=== PATIENT | male | born 1985 | race Hispanic/Latino ===

== ENCOUNTER 2017-06-04 11:19 | Inpatient (IN) | payer SELFPAY ==
[~2017-06-04] VITALS: Ht 175.3 cm; Wt 63.5 kg
[2017-06-04] VITALS (8 sets, daily range): BP systolic 125–163; BP diastolic 78–98
[~2017-06-04 11:19] MED LIST: NKM; NORCO 10-325 T1 EACH ORAL
--- NOTE | 2017-06-04 11:47 | Emergency Room Report ---
History of Present Illness General Chief Complaint: Lower Extremity Injury Source: Patient, EMS Present Illness HPI Patient was found outside a convenience store As the patient appeared to be lowering paramedics were summoned Patient had complained of general weakness Patient reports being homeless and reports that he has been having problems with his feet over the past 6 months Denies any fevers or chills He admits to doing drugs earlier today, however he is not sure exactly what he did Denies any vomiting or diarrhea denies any neck pain or photophobia Allergies: Coded Allergies: No Known Allergies (Unverified , 11/09/13) Patient History Past Medical History: see triage record Pertinent Family History: none Reviewed Nursing Documentation: PMH: Agreed, PSxH: Agreed Nursing Documentation-PMH Past Medical History: No History, Except For Hx Cardiac Problems: No - MULTIPLE DRUG USE Review of Systems All Other Systems: negative except mentioned in HPI Physical Exam Vital Signs Date Time Temp Pulse Resp B/P (MAP) Pulse Ox O2 Delivery O2 Flow Rate FiO2 06/04/17 11:02 100.0 130 19 135/98 99 Room Air Sp02 EP Interpretation: reviewed, normal General Appearance: no apparent distress Head: normocephalic, atraumatic Eyes: bilateral eye PERRL, bilateral eye EOMI ENT: normal pharynx, no angioedema Neck: supple Respiratory: lungs clear Cardiovascular #1: tachycardia Gastrointestinal: non tender, soft Musculoskeletal: other - Patient has lesions to bilateral feet, skin breakdown with some blister formation is noted in between the toes, left ankle appears mildly swollen patient states he had surgery several years ago, Neurologic: alert, oriented x3, responsive Skin: other - Disheveled in appearance, swelling in the left ankle, general skin breakdown in between the toes Lymphatic: no adenopathy Procedures Critical Care Time Critical Care Time 40 minutes for multiple re\re evaluations Critical presentation with tachycardia and fever, concerning for severe sepsis Including high wbc count And concern for worsening pathology and possible Medical Decision Making Diagnostic Impression: Primary Impression: Bacteremia Additional Impression: Severe sepsis ER Course Patient presents febrile and tachycardic There is concern for severe sepsis However the patient is not showing signs of any septic shock and maintaining appropriate blood pressure Patient has aggressive hydration and antibiotics initiated There are several sources of infection including drug abuse, leading to bacteremia Hardware infection in the left ankle Also source of from the feet with multiple blister formation Patient has imaging of the left ankle obtained as well requires admission to a high level of care [facility] [place] contacted without any bed availability And patient was admitted for further care Labs Test 06/04/17 11:41 06/04/17 12:15 White Blood Count 35.6 K/UL (4.8-10.8) Red Blood Count 4.61 M/UL (4.70-6.10) Hemoglobin 13.7 G/DL (14.2-18.0) Hematocrit 41.5 % (42.0-52.0) Mean Corpuscular Volume 90 FL (80-99) Mean Corpuscular Hemoglobin 29.7 PG (27.0-31.0) Mean Corpuscular Hemoglobin Concent 32.9 G/DL (32.0-36.0) Red Cell Distribution Width 11.5 % (11.6-14.8) Platelet Count 284 K/UL (150-450) Mean Platelet Volume 6.0 FL (6.5-10.1) Neutrophils (%) (Auto) % (45.0-75.0) Lymphocytes (%) (Auto) % (20.0-45.0) Monocytes (%) (Auto) % (1.0-10.0) Eosinophils (%) (Auto) % (0.0-3.0) Basophils (%) (Auto) % (0.0-2.0) Differential Total Cells Counted 100 Neutrophils % (Manual) 78 % (45-75) Lymphocytes % (Manual) 2 % (20-45) Monocytes % (Manual) 9 % (1-10) Eosinophils % (Manual) 0 % (0-3) Basophils % (Manual) 0 % (0-2) Band Neutrophils 11 % (0-8) Platelet Estimate Adequate Platelet Morphology Normal Red Blood Cell Morphology Normal Sodium Level 133 mEQ/L (135-145) Potassium Level 3.7 mEQ/L (3.4-4.9) Chloride Level 92 mEQ/L (98-107) Carbon Dioxide Level 24 mEQ/L (20-30) Anion Gap 17 (5-15) Blood Urea Nitrogen 23 mg/dL (7-23) Creatinine 0.8 mg/dL (0.7-1.2) Estimat Glomerular Filtration Rate > 60 mL/min (>60) Glucose Level 155 mg/dL (74-106) Calcium Level 8.8 mg/dL (8.6-10.2) Urine Color Pale yellow Urine Appearance Clear Urine pH 5 (4.5-8.0) Urine Specific [place] 1.015 (1.005-1.035) Urine Protein 2+ (NEGATIVE) Urine Glucose (UA) 4+ (NEGATIVE) Urine Ketones 3+ (NEGATIVE) Urine Occult Blood 2+ (NEGATIVE) Urine Nitrite Negative (NEGATIVE) Urine Bilirubin Negative (NEGATIVE) Urine Urobilinogen Normal MG/DL (0.0-1.0) Urine Leukocyte Esterase Negative (NEGATIVE) Urine RBC 5-10 /HPF (0 - 0) Urine WBC 2-4 /HPF (0 - 0) Urine Squamous Epithelial Cells Few /LPF (NONE/OCC) Urine Bacteria Few /HPF (NONE) Lactic Acid Level 3.40 mmol/L (0.66-2.22) Urine Opiates Screen Negative (NEGATIVE) Urine Barbiturates Screen Negative (NEGATIVE) Phencyclidine (PCP) Screen Negative (NEGATIVE) Urine Amphetamines Screen Positive (NEGATIVE) Urine Benzodiazepines Screen Negative (NEGATIVE) Urine Cocaine Screen Negative (NEGATIVE) Urine Marijuana (THC) Screen Positive (NEGATIVE) Rhythm Strip Diag. Results EP Interpretation: yes Rate: 120 Rhythm: no PVC's, no ectopy, other - sinus tach Other X-Ray Diagnostic Results Other X-Ray Diagnostic Results : X-Ray ordered: left ankle # of Views/Limited Vs Complete: 3 View Indication: Pain EP Interpretation: Yes Interpretation: no dislocation, no fractures, other - soft tissue swelling, nonspecific, questionable small gas distal fibula area Impression: Other - soft tissue swelling Electronically Signed by: Ellie Powers DO Last Vital Signs Date Time Temp Pulse Resp B/P (MAP) Pulse Ox O2 Delivery O2 Flow Rate FiO2 06/04/17 11:02 100.0 130 19 135/98 99 Room Air Status: improved Disposition: ADMITTED INPATIENT Condition: Critical ELLIE POWERS D.O. Jun 04, 2017 11:47
[2017-06-04 11:56] LABS: MEAN CORPUSCULAR HEMOGLOBIN 29.7 PG (27.0-31.0); MEAN CORPUSCULAR HGB CONC 32.9 G/DL (32.0-36.0); MEAN CORPUSCULAR VOLUME 90 FL (80-99); PLATELET COUNT 284 K/UL (150-450); RED BLOOD COUNT 4.61 M/UL (4.70-6.10); RED CELL DISTRIBUTION WIDTH 11.5 % (11.6-14.8)
[2017-06-04 11:59] LABS: WHITE BLOOD COUNT 35.6 K/UL (4.8-10.8)
[2017-06-04] MEDS ORDERED: Acetaminophen 500mg (ES) tab ORAL ONE (11:59)
[2017-06-04 12:07] LABS: ANION GAP 17 (5-15); CALCIUM 8.8 mg/dL (8.6-10.2); CARBON DIOXIDE 24 mEQ/L (20-30); CHLORIDE 92 mEQ/L (98-107); CREATININE 0.8 mg/dL (0.7-1.2); GLOMERULAR FILTRATION RATE > 60 mL/min (>60); HEMOLYSIS 16; POTASSIUM 3.7 mEQ/L (3.4-4.9); SODIUM 133 mEQ/L (135-145)
[2017-06-04] MEDS ORDERED: cefTRIAXone 1 GM in NS 55 ML IVPB ONE (12:15)
[2017-06-04] MEDS ORDERED: Acetaminophen 500mg (ES) tab ORAL SCH (12:15)
[2017-06-04] MEDS ORDERED: NS 1000ml 1,900 ML IVLG ONE (12:15)
[2017-06-04] MEDS ORDERED: Vancomycin 1 GM in NS 275 ML IVPB ONE (12:15)
[2017-06-04] MEDS ORDERED: Vancomycin 1gm inj IVPB ONE (12:32)
[2017-06-04] MEDS ORDERED: Hydrogen Peroxide 473ml Bottle TOPIC ONE ×2 (12:47→13:00)
[2017-06-04 12:54] LABS: APPEARANCE,URINE CLEAR; KETONES,URINE 3+ (NEGATIVE); LEUKOCYTE ESTERASE ,URINE NEGATIVE (NEGATIVE); NITRITE,URINE NEGATIVE (NEGATIVE); PH,URINE 5 (4.5-8.0); PROTEIN,URINE 2+ (NEGATIVE); UROBILINOGEN,URINE NORMAL MG/DL (0.0-1.0)
[2017-06-04 12:56] LABS: REFLEX LACTIC ACID YES OR NO YES
[2017-06-04 12:58] LABS: BAND NEUTROPHILS % (MANUAL) 11 % (0-8); BASOPHILS % (MANUAL) 0 % (0-2); EOSINOPHILS % (MANUAL) 0 % (0-3); LYMPHOCYTES % (MANUAL) 2 % (20-45); NEUTROPHILS % (MANUAL) 78 % (45-75); PLATELET ESTIMATE ADEQUATE; PLATELET MORPHOLOGY NORMAL; TOTAL CELLS COUNTED 100
[2017-06-04 13:09] LABS: BACTERIA,URINE FEW /HPF; SQUAMOUS EPITHELIAL CELL,UR FEW /LPF (NONE/OCC)
[2017-06-04] MEDS ORDERED: Acetaminophen 500mg (ES) tab ORAL PRN (16:00)
[2017-06-04] MEDS: Piperacillin/Tazobactam 3.375 GM in D5W 110 ML IVPB SCH (17:55)
[2017-06-04] MEDS: Heparin 5000 units/ml inj SUBQ SCH (20:32)
[2017-06-04] MEDS: Vancomycin 750mg/NS 250ml IVPB SCH (20:32)
[2017-06-05] MEDS: Norco 10mg/325mg tab ORAL PRN ×5 (00:24→23:56)
[2017-06-05] MEDS: Piperacillin/Tazobactam 3.375 GM in D5W 110 ML IVPB SCH ×3 (01:40→17:53)
[2017-06-05 03:46] VITALS: BP 124/65
[2017-06-05] MEDS: Vancomycin 750mg/NS 250ml IVPB SCH ×3 (04:36→22:25)
[2017-06-05 08:09] VITALS: BP 125/80
[2017-06-05 08:11] LABS: MEAN CORPUSCULAR HEMOGLOBIN 31.6 PG (27.0-31.0); MEAN CORPUSCULAR HGB CONC 34.7 G/DL (32.0-36.0); MEAN CORPUSCULAR VOLUME 91 FL (80-99); MEAN PLATELET VOLUME 5.7 FL (6.5-10.1); PLATELET COUNT 231 K/UL (150-450); RED BLOOD COUNT 3.36 M/UL (4.70-6.10)
[2017-06-05 08:29] LABS: CKMB 3.7 ng/mL (< 6.7)
[2017-06-05] MEDS ORDERED: Morphine Sulfate 2mg/ml Inj IVP ONE (08:30)
[2017-06-05] MEDS ORDERED: LORazepam Inj 2mg/ml 1ml IV ONE (08:30)
--- NOTE | 2017-06-05 08:49 | Consultation ---
Consult Note Consult Note DATE OF CONSULT: 06/05/17 COVERING FOR: ERICK ELIZABETH DPM REASON FOR CONSULT: BILATERAL FOOT ULCERS HISTORY OF PRESENT ILLNESS: Patient is withdrawn and unwilling to answer questions initially. He is homeless with a history of drug abuse who presents with bilateral foot wounds. Patient states that he has pain on the right foot and mentions that he is having difficulty moving the right lower extremity. breeder hen service technician is present to take patient for MRI of the lower back. PAST MEDICAL HISTORY: Patient states he does not have any medical problems Last 24 Hour Vital Signs Date Time Temp Pulse Resp B/P (MAP) Pulse Ox O2 Delivery O2 Flow Rate FiO2 06/05/17 08:09 96.8 127 20 125/80 96 Room Air 06/05/17 05:50 98.4 06/05/17 04:00 105 06/05/17 03:46 98.4 126 23 124/65 98 Room Air 06/05/17 00:18 100.0 06/05/17 00:00 104 06/04/17 23:50 101.5 109 21 125/80 96 06/04/17 20:00 118 06/04/17 19:52 100.0 122 23 163/84 96 Room Air 06/04/17 16:35 126 06/04/17 16:25 98.6 121 20 148/82 98 Room Air 06/04/17 16:15 117 06/04/17 15:38 116 18 136/89 99 Room Air 06/04/17 15:27 100.5 118 16 145/81 100 Room Air 06/04/17 14:05 125 20 143/79 98 Room Air 06/04/17 13:47 129 24 140/78 100 Room Air 06/04/17 13:20 97.8 06/04/17 12:54 123 24 143/93 100 Room Air 06/04/17 11:25 100.3 123 20 139/98 99 Room Air 06/04/17 11:20 128 20 Room Air 06/04/17 11:02 100.0 130 19 135/98 99 Room Air Laboratory Tests Test 06/04/17 11:41 06/04/17 12:15 06/04/17 14:29 06/05/17 07:35 White Blood Count 35.6 K/UL (4.8-10.8) *H 30.0 K/UL (4.8-10.8) *H Red Blood Count 4.61 M/UL (4.70-6.10) L 3.36 M/UL (4.70-6.10) L Hemoglobin 13.7 G/DL (14.2-18.0) L 10.6 G/DL (14.2-18.0) L Hematocrit 41.5 % (42.0-52.0) L 30.6 % (42.0-52.0) L Mean Corpuscular Volume 90 FL (80-99) 91 FL (80-99) Mean Corpuscular Hemoglobin 29.7 PG (27.0-31.0) 31.6 PG (27.0-31.0) H Mean Corpuscular Hemoglobin Concent 32.9 G/DL (32.0-36.0) 34.7 G/DL (32.0-36.0) Red Cell Distribution Width 11.5 % (11.6-14.8) L 12.0 % (11.6-14.8) Platelet Count 284 K/UL (150-450) 231 K/UL (150-450) Mean Platelet Volume 6.0 FL (6.5-10.1) L 5.7 FL (6.5-10.1) L Neutrophils (%) (Auto) % (45.0-75.0) % (45.0-75.0) Lymphocytes (%) (Auto) % (20.0-45.0) % (20.0-45.0) Monocytes (%) (Auto) % (1.0-10.0) % (1.0-10.0) Eosinophils (%) (Auto) % (0.0-3.0) % (0.0-3.0) Basophils (%) (Auto) % (0.0-2.0) % (0.0-2.0) Differential Total Cells Counted 100 Neutrophils % (Manual) 78 % (45-75) H Pending Lymphocytes % (Manual) 2 % (20-45) L Pending Monocytes % (Manual) 9 % (1-10) Eosinophils % (Manual) 0 % (0-3) Basophils % (Manual) 0 % (0-2) Band Neutrophils 11 % (0-8) H Platelet Estimate Adequate Pending Platelet Morphology Normal Pending Red Blood Cell Morphology Normal Sodium Level 133 mEQ/L (135-145) L Potassium Level 3.7 mEQ/L (3.4-4.9) Chloride Level 92 mEQ/L (98-107) L Carbon Dioxide Level 24 mEQ/L (20-30) Anion Gap 17 (5-15) H Blood Urea Nitrogen 23 mg/dL (7-23) Creatinine 0.8 mg/dL (0.7-1.2) Estimat Glomerular Filtration Rate > 60 mL/min (>60) Glucose Level 155 mg/dL (74-106) H Calcium Level 8.8 mg/dL (8.6-10.2) Urine Color Pale yellow Urine Appearance Clear Urine pH 5 (4.5-8.0) Urine Specific [place] 1.015 (1.005-1.035) Urine Protein 2+ (NEGATIVE) H Urine Glucose (UA) 4+ (NEGATIVE) H Urine Ketones 3+ (NEGATIVE) H Urine Occult Blood 2+ (NEGATIVE) H Urine Nitrite Negative (NEGATIVE) Urine Bilirubin Negative (NEGATIVE) Urine Urobilinogen Normal MG/DL (0.0-1.0) Urine Leukocyte Esterase Negative (NEGATIVE) Urine RBC 5-10 /HPF (0 - 0) H Urine WBC 2-4 /HPF (0 - 0) Urine Squamous Epithelial Cells Few /LPF (NONE/OCC) Urine Bacteria Few /HPF (NONE) Lactic Acid Level 3.40 mmol/L (0.66-2.22) H 4.40 mmol/L (0.66-2.22) H 0.90 mmol/L (0.66-2.22) Urine Opiates Screen Negative (NEGATIVE) Urine Barbiturates Screen Negative (NEGATIVE) Phencyclidine (PCP) Screen Negative (NEGATIVE) Urine Amphetamines Screen Positive (NEGATIVE) H Urine Benzodiazepines Screen Negative (NEGATIVE) Urine Cocaine Screen Negative (NEGATIVE) Urine Marijuana (THC) Screen Positive (NEGATIVE) H Hemoglobin A1c Pending Total Creatine Kinase 685 U/L (38-174) H Creatine Kinase MB 3.7 ng/mL (< 6.7) Creatine Kinase MB Relative Index 0.5 SOCIAL HISTORY: History of recent drug abuse. Patient is not sure what he took. Patient is homeless per chart review Medications: Reviewed Allergies: Non known PHYSICAL EXAM: DERM: Patient has an ingrown nail at the right hallux medial border with purulence noted. Patient also has a small pustule at the dorsal right 3rd toe. Interdigital blisters in various stages of healing NEURO: Sensation in tact to light touch VASC: Pedal pulses palpable MSK: Decreased muscle strength noted on right lower extremity . Assessment/Plan ASSESSMENT: - Right hallux ingrown with surrounding cellulitis - Right 3rd toe pustule - Interdigital blisters - Right lower extremity acute weakness PLAN: - Performed a slant back procedure on the right hallux medial border. If inflammation does not improve patient will require a partial nail avulsion. Continue daily dressing changes with application of topical antibiotic ointment covered with non adherent dry dressing. Obtained cultures - Lanced the right foot 3rd toe pustule - Follow up MRI results Donald Pink DPM Jun 05, 2017 08:49
[2017-06-05 08:56] LABS: BAND NEUTROPHILS % (MANUAL) 6 % (0-8); BASOPHILS % (MANUAL) 0 % (0-2); EOSINOPHILS % (MANUAL) 0 % (0-3); LYMPHOCYTES % (MANUAL) 4 % (20-45); NEUTROPHILS % (MANUAL) 83 % (45-75); PLATELET ESTIMATE ADEQUATE; PLATELET MORPHOLOGY NORMAL; TOTAL CELLS COUNTED 100
[2017-06-05] MEDS ORDERED: Tubing IV Secondary IV ONE (10:02)
--- NOTE | 2017-06-05 10:07 | Diagnostic Imaging Report ---
Indication: PAIN Technique: 3 views of the left ankle Comparison: None Findings: Medial side plate and screws are seen reducing old healed distal tibial fracture deformity. There is also old healed distal fibular fracture deformity. No acute fractures. No dislocations. The joint spaces are preserved Impression: No acute bony trauma. Findings as noted
[2017-06-05] MEDS: Heparin 5000 units/ml inj SUBQ SCH ×2 (10:18→20:06)
[2017-06-05 11:25] VITALS: BP 134/71
--- NOTE | 2017-06-05 11:30 | Diagnostic Imaging Report ---
Indication: ABSCESS Technique: Sagittal T1, sagittal T2 PROPELLER, sagittal STIR PROPELLER, axial T1 FLAIR propeller, axial T2 FRFSE, axial T2 PROPELLER disc cut, pre-and postcontrast sagittal axial T1 fast spin-echo fat-saturated images Comparison: None Findings: The bony alignment is normal. Vertebral body heights are preserved. The disc spaces are preserved. The vertebral body marrow signal is normal. The conus medullaris terminates at the L1 level. No significant disc old or protrusion, spinal stenosis, or neural foraminal stenosis demonstrated. No unusual contrast enhancement. There is marked abnormality of the right iliopsoas muscle. The iliacus muscle in particular is diffusely edematous and demonstrates considerable contrast enhancement at least 2 areas of high T2 signal and non-enhancement are seen within the belly of the iliacus muscle, each measuring about 15 mm in diameter. There is somewhat less striking distal definite increased T2 signal and enhancement extending cephalad up the posterior psoas muscle. Note that the iliacus muscle is incompletely included on the available imaging volumes, so the extent of abnormality is not completely seen, at least caudad within the pelvis The remainder of the visualized extraspinal soft tissues are unremarkable. Impression: Evidence of inflammation of the right iliopsoas musculature, particularly the iliacus component, with marked edema and considerable contrast enhancement. At least 2 small abscesses are seen within the iliacus muscle belly. Although the above abnormality is contiguous with the right lateral aspect of the lumbar vertebral bodies and transverse processes, as well as the exiting nerve roots, there is no evidence of direct lumbar spinal involvement by the above. No evidence of epidural abscess or significant neural impingement.
[2017-06-05 15:41] VITALS: BP 118/69
--- NOTE | 2017-06-05 18:21 | Cardiology Report ---
APPROVED REPORT EXAM: Two-dimensional and M-mode echocardiogram with Doppler and color Doppler. INDICATION Endocarditis M-Mode DIMENSIONS IVSd0.8 (0.7-1.1cm)Left Atrium (MM)3.5 (1.6-4.0cm) LVDd4.5 (3.5-5.6cm)Aortic Root2.4 (2.0-3.7cm) PWd0.7 (0.7-1.1cm)Aortic Cusp Exc.2.0 (1.5-2.0cm) LVDs3.0 (2.5-4.0cm) PWs1.1 cm Technically difficult study due to poor acoustic windows. Normal left ventricular chamber size, systolic function and wall motion. Left ventricular ejection fraction estimated to be 60-65%. No evidence of left ventricular hypertrophy. No evidence of pericardial fat or effusion. All other cardiac chamber sizes are within normal limits. Focal aortic valve sclerosis with adequate cusp excursion Thickened mitral valve leaflets with normal excursion. Mitral annulus and aortic root calcification. Pulmonic valve not well visualized. Normal tricuspid valve structure. IVC is normal in size with physiologic collapse. No evidence of vegitation, consider EDWARD if clinically indicated. A color flow and spectral Doppler study was performed and revealed: No aortic regurgitation. Trace mitral regurgitation. Left ventricular diastolic dysfunction grade 1. Trace tricuspid regurgitation.
--- NOTE | 2017-06-05 18:36 | Cardiology Report ---
APPROVED REPORT EKG Measurement Heart [id number] Sinus tachycardia Otherwise normal ECG
[2017-06-05 20:00] VITALS: BP 129/80
--- NOTE | 2017-06-05 20:15 | History and Physical Report ---
DATE OF ADMISSION: 06/04/2017 CHIEF COMPLAINT: Sepsis. HISTORY OF PRESENT ILLNESS: The patient is a 32-year-old male. He has a history of substance abuse and presented with complaints of a fall. According to the patient, he was well, felt weak, and fell down on the street. He was brought in by paramedics. On evaluation in the emergency room, the patient was noted to have fever of 101.5. He was tachycardiac with a white count of 35,000 and elevated lactic acid level. The patient denies any cough. He denies any fevers or chills. He is noted to have erythema on the right arm possibly secondary to cellulitis as well as multiple foot wounds and erythema. He has been started on broad-spectrum IV antibiotic therapy. He is now admitted for further evaluation and care. PAST MEDICAL HISTORY: None. PAST SURGICAL HISTORY: None. CURRENT MEDICATIONS: None. FAMILY HISTORY: None. SOCIAL HISTORY: The patient smokes amphetamines and injects amphetamines as well as marijuana. REVIEW OF SYSTEMS: Negative except for generalized pain. The patient also states he is having difficulty moving his right leg. PHYSICAL EXAMINATION: VITAL SIGNS: Temperature 96.8, pulse 127, respirations 20, and blood pressure 125/80. GENERAL: The patient is a thin male, but in no apparent distress. He is alert and oriented x4. NECK: Supple. There is no adenopathy. HEART: Regular rate and rhythm. LUNGS: Clear. ABDOMEN: Soft, nontender, and nondistended. EXTREMITIES: Without clubbing or cyanosis. The patient has weakness with flexion of the right hip. ASSESSMENT: This is a 32-year-old male admitted with complaints of leukocytosis, sepsis, and fevers of unclear etiology. There is concern about a possible foot infection as well as cellulitis. He has some weakness in the right leg as well as generalized pain. I would also be concerned about endocarditis and a spine infection. PLAN: Continue broad-spectrum IV antibiotics. ID and Podiatry consultations. Aggressive hydration. Followup cultures, 2D echo, and MRI of the lumbar spine to rule out an epidural abscess. Ulises Hunter M.D. DR: FESTUS JOB#: [id number] CC:
[2017-06-06 00:19] VITALS: BP 127/75
[2017-06-06] MEDS: Piperacillin/Tazobactam 3.375 GM in D5W 110 ML IVPB SCH ×3 (01:00→18:07)
[2017-06-06] MEDS: Vancomycin 1250mg/D5W 250ml IVPB SCH ×4 (03:39→22:29)
[2017-06-06 04:31] VITALS: BP 120/61
[2017-06-06] MEDS: Norco 10mg/325mg tab ORAL PRN (06:16)
--- NOTE | 2017-06-06 08:39 | General Progress Note ---
Assessment/Plan Problem List: (1) Severe sepsis ICD Codes: A41.9 - Sepsis, unspecified organism; R65.20 - Severe sepsis without septic shock SNOMED: [id number] Status: stable, progressing Assessment/Plan iv abx follow cultures surgery eval for abscess anxiety rx Subjective ROS Limited/Unobtainable: No Constitutional: Reports: malaise, weakness HEENT: Reports: no symptoms Cardiovascular: Reports: no symptoms Respiratory: Reports: no symptoms Gastrointestinal/Abdominal: Reports: no symptoms Genitourinary: Reports: no symptoms Neurologic/Psychiatric: Reports: anxiety Endocrine: Reports: no symptoms Hematologic/Lymphatic: Reports: no symptoms Allergies: Coded Allergies: No Known Allergies (Unverified , 11/09/13) All Systems: reviewed and negative except above Subjective no events. fever trending down MRI negative for epidural abscess. no endocarditis on echo. CT shows right illpsoas/thigh abscess. Objective Last 24 Hour Vital Signs Date Time Temp Pulse Resp B/P (MAP) Pulse Ox O2 Delivery O2 Flow Rate FiO2 06/06/17 04:31 99.7 111 20 120/61 94 Room Air 06/06/17 04:00 105 06/06/17 00:55 98.6 06/06/17 00:19 98.6 118 20 127/75 94 06/06/17 00:00 110 06/05/17 20:00 101.7 125 19 129/80 97 Room Air 06/05/17 20:00 123 06/05/17 16:00 122 06/05/17 15:41 99.3 124 20 118/69 98 Room Air 06/05/17 12:00 127 06/05/17 11:25 98.4 129 20 134/71 95 Room Air 06/05/17 09:42 110 Laboratory Tests 06/05/17 21:15: Vancomycin Level Trough 4.7L Height (Feet): 5 Height (Inches): 9.00 Weight (Pounds): 140 General Appearance: WD/WN, agitated Neck: supple Cardiovascular: regular rhythm Respiratory/Chest: lungs clear, normal breath sounds Abdomen: normal bowel sounds, non tender, soft, no organomegaly Edema: no edema noted Arm (L), no edema noted Arm (R), no edema noted Leg (L), no edema noted Leg (R), no edema noted Pedal (L), no edema noted Pedal (R), no edema noted Generalized Neurologic: sorting and folding supervisor II-XII grossly normal, alert, oriented x 3, responsive TERESA REEVES Jun 06, 2017 08:39
[2017-06-06 09:33] VITALS: BP 131/87
--- NOTE | 2017-06-06 09:33 | Diagnostic Imaging Report ---
APPROVED REPORT CPT Code: 25105 Comments Pain Bilaterally. BILATERAL: Common femoral artery waveform analysis is within normal limits at rest. Color flow duplex sonography reveals patency of the superficial femoral, popliteal, and tibial arteries, there is no evidence of stenosis or occlusion within these segments. Doppler tibial artery waveform analysis is within normal limits, bilaterally. There is no evidence of significant arterial occlusive disease, bilaterally.
[2017-06-06] MEDS: Heparin 5000 units/ml inj SUBQ SCH ×2 (09:41→21:06)
[2017-06-06 09:55] LABS: OTHERS PATHOLOGIST COMMENT
[2017-06-06 10:24] LABS: MEAN CORPUSCULAR HEMOGLOBIN 32.3 PG (27.0-31.0); MEAN CORPUSCULAR HGB CONC 35.1 G/DL (32.0-36.0); MEAN CORPUSCULAR VOLUME 92 FL (80-99); MEAN PLATELET VOLUME 5.9 FL (6.5-10.1); PLATELET COUNT 240 K/UL (150-450); RED BLOOD COUNT 3.33 M/UL (4.70-6.10)
[2017-06-06 10:27] LABS: WHITE BLOOD COUNT 29.7 K/UL (4.8-10.8)
[2017-06-06 10:42] LABS: BAND NEUTROPHILS % (MANUAL) 5 % (0-8); BASOPHILS % (MANUAL) 0 % (0-2); EOSINOPHILS % (MANUAL) 0 % (0-3); LYMPHOCYTES % (MANUAL) 5 % (20-45); NEUTROPHILS % (MANUAL) 84 % (45-75); PLATELET ESTIMATE ADEQUATE; PLATELET MORPHOLOGY NORMAL; TOTAL CELLS COUNTED 100
[2017-06-06 10:44] LABS: ALANINE AMINOTRANSFERASE 39 U/L (3-41); ALBUMIN/GLOBULIN RATIO 0.8 (1.0-2.7); ANION GAP 7 (5-15); ASPARTATE AMINO TRANSFERASE 33 U/L (5-40); CARBON DIOXIDE 31 mEQ/L (20-30); CHLORIDE 102 mEQ/L (98-107); CREATININE 0.7 mg/dL (0.7-1.2); GLOMERULAR FILTRATION RATE > 60 mL/min (>60); HEMOLYSIS 0; POTASSIUM 3.3 mEQ/L (3.4-4.9); SODIUM 140 mEQ/L (135-145); TOTAL PROTEIN 5.6 g/dL (6.6-8.7)
--- NOTE | 2017-06-06 10:53 | Consultation ---
History of Present Illness General Date patient seen: Jun 06, 2017 Chief Complaint: Lower Extremity Injury Reason for Consultation: right iliacus abscess Present Illness HPI 32 year old male with history of IVDA presented with complaints of fatigue resulting in fall. Patient complaining of right groin pain and difficulty walking because of pain and swelling in right groin. States that his has been going on for 2 days and does not recall any events prior to acute onset. Pain described as 10/10 right groin pain that is sharp in nature. has not had similar events prior. MRI ordered for pain demonstrated right iliacus/psoas abscess with inflammation. Upon admission patient was febrile with leukocytosis of 35k and elevated lactate. Surgery called to evaluate. When seen at bedside patient complains of right groin pain and difficulty with moving right leg. From beginning of interview to the end patient is focused on pain medication and continuously requests pain medication. He interrupts interview multiple times to discuss what pain medication he is on and how it can be changed to stronger pain medication. He states that he has been an IVDA for many years now. 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 States he has injected in his right arm prior but denies injection into lower extremities, trunk, neck, or groins. During examination patient does not demonstrate pain when distracted but when focused on pain medication he projects severe pain. PMHx: IVDA, denies any other past medical history PSHx: none as per patient FHx: none as per patient NKDA Social Hx: denies tobacco, denies EtOH, initially denies drugs but then admits to IVDA of Meth Allergies: Coded Allergies: No Known Allergies (Unverified , 11/09/13) Medication History Scheduled No Known Medications* (NKM - No Known Medications*), 0 ., (Reported) No Known Medications* (NKM - No Known Medications*), 0 ., (Reported) Scheduled PRN Hydrocodone Bit/Acetaminophen 10-325* ([place] 10-325*), 1 TAB ORAL Q6H PRN for For Pain Patient History History Provided By: Patient Healthcare decision maker Resuscitation status Full Code Advanced Directive on File Past Medical/Surgical History Past Medical/Surgical History: (1) Psoas abscess, right (2) tibia fracture (3) fibula fracture (4) Acute alcoholic intoxication (5) Drug abuse (6) Drug abuse (7) Bacteremia (8) Severe sepsis Review of Systems Constitutional: Reports: fever Eye: Denies: no symptoms, see HPI, eye pain, blurred vision, tearing, double vision, nose pain, nose congestion, acuity changes, discharge, other ENT: Denies: no symptoms, see HPI, ear pain, ear discharge, nose pain, nose congestion, throat pain, throat swelling, mouth pain, hearing loss, nasal discharge, other Respiratory: Denies: no symptoms, see HPI, cough, orthopnea, shortness of breath, stridor, wheezing, SALGUERO, sputum, other Cardiovascular: Denies: no symptoms, see HPI, chest pain, edema, palpitations, syncope, PND, other Gastrointestinal: Denies: no symptoms, see HPI, abdominal pain, constipation, diarrhea, nausea, vomiting, melena, hematemesis, other Genitourinary: Denies: no symptoms, see HPI, discharge, dysuria, frequency, hematuria, pain, retention, incontinence, urgency, vag bleed/dc, other Musculoskeletal: Reports: back pain, joint pain, muscle pain, muscle stiffness Skin: Denies: no symptoms, see HPI, rash, change in color, change in hair/nails , dryness, lesions, other Psychiatric: Reports: prior hx, Denies: no symptoms, see HPI, anxiety, depressed feelings, emotional problems, SI, HI, hallucinations, other Neurological: Denies: no symptoms, see HPI, headache, numbness, paresthesia, seizure, tingling, tremors, focal weakness, syncope, dizziness, other Endocrine: Denies: no symptoms, see HPI, excessive sweating, flushing, intolerance to temperature, increased thirst, increased urine, unexplained weight loss, other Hematologic/Lymphatic: Denies: no symptoms, see HPI, anemia, blood clots, easy bleeding, easy bruising, swollen glands, diathesis, other Physical Exam General Appearance: no apparent distress, alert Lines, tubes and drains: peripheral HEENT: normocephalic, atraumatic, mucous membranes moist, PERRL Neck: non-tender, normal alignment, normal inspection Respiratory/Chest: normal breath sounds, no respiratory distress, no accessory muscle use Cardiovascular/Chest: normal peripheral pulses, normal rate, regular rhythm Abdomen: normal bowel sounds, non tender, soft, no organomegaly, no mass Genitourinary/Rectal: normal genital exam Extremities: other - right groin and upper thigh with some edema and tenderness. no superficial abscess or inflammatory process noted. decreased range of motion from inflammation in right leg. no pain with active or passive motion Skin Exam: normal pigmentation Neurologic: alert, oriented x 3, responsive Last 24 Hour Vital Signs Date Time Temp Pulse Resp B/P (MAP) Pulse Ox O2 Delivery O2 Flow Rate FiO2 06/06/17 09:33 98.2 95 16 131/87 99 Room Air 06/06/17 04:31 99.7 111 20 120/61 94 Room Air 06/06/17 04:00 105 06/06/17 00:55 98.6 06/06/17 00:19 98.6 118 20 127/75 94 06/06/17 00:00 110 06/05/17 20:00 101.7 125 19 129/80 97 Room Air 06/05/17 20:00 123 06/05/17 16:00 122 06/05/17 15:41 99.3 124 20 118/69 98 Room Air 06/05/17 12:00 127 06/05/17 11:25 98.4 129 20 134/71 95 Room Air Laboratory Tests Test 06/05/17 21:15 06/06/17 09:55 Vancomycin Level Trough 4.7 ug/mL (5.0-12.0) L White Blood Count 29.7 K/UL (4.8-10.8) *H Red Blood Count 3.33 M/UL (4.70-6.10) L Hemoglobin 10.7 G/DL (14.2-18.0) L Hematocrit 30.6 % (42.0-52.0) L Mean Corpuscular Volume 92 FL (80-99) Mean Corpuscular Hemoglobin 32.3 PG (27.0-31.0) H Mean Corpuscular Hemoglobin Concent 35.1 G/DL (32.0-36.0) Red Cell Distribution Width 12.0 % (11.6-14.8) Platelet Count 240 K/UL (150-450) Mean Platelet Volume 5.9 FL (6.5-10.1) L Neutrophils (%) (Auto) % (45.0-75.0) Lymphocytes (%) (Auto) % (20.0-45.0) Monocytes (%) (Auto) % (1.0-10.0) Eosinophils (%) (Auto) % (0.0-3.0) Basophils (%) (Auto) % (0.0-2.0) Neutrophils % (Manual) Pending Lymphocytes % (Manual) Pending Platelet Estimate Pending Platelet Morphology Pending Sodium Level Pending Potassium Level Pending Chloride Level Pending Carbon Dioxide Level Pending Blood Urea Nitrogen Pending Creatinine Pending Estimat Glomerular Filtration Rate Pending Glucose Level Pending Calcium Level Pending Total Bilirubin Pending Aspartate Amino Transf (AST/SGOT) Pending Alanine Aminotransferase (ALT/SGPT) Pending Alkaline Phosphatase Pending Total Protein Pending Albumin Pending Globulin Pending Hepatitis A IgM Antibody Pending Hepatitis A Antibody Total Pending Hepatitis B Surface Antigen Pending Hepatitis B Surface Antibody Pending Hepatitis C Antibody Pending HIV (1&2) Antibody Rapid Pending Height (Feet): 5 Height (Inches): 9.00 Weight (Pounds): 140 Medications Current Medications Medications (Trade) Dose Ordered Sig/Raymon Route PRN Reason Start Time Stop Time Status Last Admin Dose Admin Acetaminophen (Tylenol) 500 mg Q4H PRN ORAL Mild Pain/Temp > 100.5 06/04/17 16:00 07/04/17 15:59 06/04/17 23:07 Acetaminophen/ Hydrocodone Bitart ([place] 10/325) 1 ea Q4H PRN ORAL For Pain 06/04/17 16:00 06/11/17 15:59 06/06/17 06:16 Heparin Sodium (Porcine) (Heparin 5000 units/ml) 5,000 units EVERY 12 HOURS SUBQ 06/04/17 21:00 07/04/17 20:59 06/06/17 09:41 Lorazepam (Ativan 2mg/ml 1ml) 1 mg Q4H PRN IV For Anxiety 06/04/17 16:00 06/11/17 15:59 Ondansetron HCl (Zofran) 4 mg Q6H PRN IVP Nausea & Vomiting 06/04/17 15:00 07/04/17 14:59 Piperacillin Sod/ Tazobactam Sod 3.375 gm/Dextrose 110 ml @ 27.5 mls/hr Q8HR@0200,1000,1800 IVPB 06/04/17 18:00 06/11/17 17:59 06/06/17 01:00 Sodium Chloride 1,000 ml @ 100 mls/hr Q10H IV 06/04/17 16:00 07/04/17 15:59 06/05/17 20:03 Tamsulosin HCl (Flomax) 0.4 mg BEDTIME ORAL 06/06/17 21:00 07/06/17 20:59 Vancomycin HCl (Vanco rx to dose) 1 ea DAILY PRN MISC Per rx protocol 06/04/17 16:00 07/04/17 15:59 Vancomycin HCl/ Dextrose 250 ml @ 166.667 mls/hr Q6H IVPB 06/06/17 04:00 06/11/17 03:59 06/06/17 09:38 Assessment/Plan Problem List: (1) Psoas abscess, right Assessment & Plan: 32M hx of IVDA presented with fatigue, fall, right groin pain, back pain, febrile, leukocytosis. MRI demonstrated inflammatory process in right iliacus/psoas muscle. MRI reviewed with radiologist and incomplete imaging of defined area. there is an inflammatory process in the right iliacus/ psoas area but not completely seen on MRI. There is mostly phlegmon and possibly a small 1cm intramuscular abscess. -Need CT A/P with IV contrast to evaluate full extent of inflammatory process -No acute surgical intervention at this time. Abscess in psoas/iliacus is mainly phlegmon. Location of abscess is intramuscular and depending on CT findings may need IR drainage but unsure as of now. -Continue IV Abx -Thank you for this consultation. will follow with recs. ICD Codes: K68.12 - Psoas muscle abscess SNOMED: [id number] Status: stable Barry Lantigua Jun 06, 2017 10:53
[2017-06-06] MEDS: Norco 5mg/325mg tab ORAL PRN ×2 (11:51→18:06)
--- NOTE | 2017-06-06 17:00 | Diagnostic Imaging Report ---
Indication: Abdominal pain. Back pain. Abnormal MRI lumbar spine. Technique: Continuous helical transaxial imaging of the abdomen and pelvis was obtained from the lung bases to the pubic symphysis during intravenous contrast administration. Coronal 2-D reformats were also obtained. Study obtained in a Siemens sensation [address] Total Dose length Product (DLP): [address] Dose Index Volume (CTDIvol): 0.15, 13.01 mGy Comparison: MRI lumbar spine 06/05/17 Findings: Trace bilateral pleural effusions are present. Mild posterior basilar atelectasis also demonstrated especially on the right. There are internal low attenuation foci within the liver likely multiple cysts. The gallbladder is distended. A few low-attenuation lesions noted in the kidneys. There is soft tissue stranding of the retroperitoneal fat posterior to the right kidney along the right paracolic gutter involving the right iliacus muscle and the posterior lower part of the right iliopsoas muscle both of which appear enlarged. Correlation with recently obtained MRI was made. The right iliacus and lower right iliopsoas muscle are enlarged. This is mostly on the basis of phlegmon and myositis. There are one or 2 discrete collections of fluid which could be aspirated percutaneously for cultures (if needed). For example, deep right iliac region (image 63 of series 3) showing a 2 cm fluid focus and a 1.5 CM focus at the superior aspect of the right sacroiliac joint. There is also reticulation and edema of the subcutaneous fat over the right hip and enlargement due to edema of right hip and thigh muscles with fluid insinuating in the intermuscular fascia between tensor fascia ezra muscle, sartorius and vastus lateralis. The edema and presumed cellulitis/infection extends below the [id number] of this examination into the right thigh. There is no evidence of bowel obstruction or free air. There is a trace amount of ascites. There is thickening of the bladder wall. There is a small amount and the bladder lumen presumably iatrogenic from recent Prasad placement which may be confirmed clinically. The appendix is not identified. Impression: Myositis and phlegmon involving the right iliopsoas/iliacus muscles, adjacent retroperitoneal inflammation and 1-2 cm discrete fluid collections likely small abscess at the level of the right iliac fossa. Infection and cellulitis involving the right hip/gluteal musculature extending into the right thigh inferior to and beyond the [id number]. Trace bilateral pleural effusions Innumerable tiny low density foci within the liver. Majority of these are too small to adequately characterize but are likely cystic. Thickening of the urinary bladder wall presumably cystitis. Small focus of air within the bladder could be on the basis of recent Prasad placement. There is no history of this, findings could be due to gas-forming organism and infection i.e. UTI. Please correlate clinically. The CT scanner at [facility] is accredited by the [employer] and the scans are performed using dose optimization techniques as appropriate to a performed exam including Automatic Exposure control.
[2017-06-06 20:00] VITALS: BP 138/80
[2017-06-06] MEDS ORDERED: NS 275ml ONE (20:07)
[2017-06-06] MEDS: Tamsulosin 0.4mg cap ORAL SCH (21:03)
[2017-06-06] MEDS: LORazepam Inj 2mg/ml 1ml IV PRN (21:03)
[2017-06-07] VITALS: BP_SYST 133; BP_SYST 138; BP_DIAS 76; BP_DIAS 80
[2017-06-07] MEDS: Piperacillin/Tazobactam 3.375 GM in D5W 110 ML IVPB SCH ×3 (01:56→17:51)
[2017-06-07 04:00] VITALS: BP 145/80
[2017-06-07 04:30] LABS: ALANINE AMINOTRANSFERASE 41 U/L (3-41); ALBUMIN/GLOBULIN RATIO 0.7 (1.0-2.7); ANION GAP 8 (5-15); ASPARTATE AMINO TRANSFERASE 37 U/L (5-40); CALCIUM 8.1 mg/dL (8.6-10.2); CARBON DIOXIDE 33 mEQ/L (20-30); CHLORIDE 99 mEQ/L (98-107); CREATININE 0.7 mg/dL (0.7-1.2); GLOMERULAR FILTRATION RATE > 60 mL/min (>60); HEMOLYSIS 0; POTASSIUM 3.2 mEQ/L (3.4-4.9); SODIUM 140 mEQ/L (135-145); TOTAL PROTEIN 6.2 g/dL (6.6-8.7)
[2017-06-07 05:03] LABS: MEAN CORPUSCULAR HEMOGLOBIN 30.8 PG (27.0-31.0); MEAN CORPUSCULAR HGB CONC 33.4 G/DL (32.0-36.0); MEAN CORPUSCULAR VOLUME 92 FL (80-99); MEAN PLATELET VOLUME 5.4 FL (6.5-10.1); PLATELET COUNT 316 K/UL (150-450); RED BLOOD COUNT 3.55 M/UL (4.70-6.10); RED CELL DISTRIBUTION WIDTH 11.8 % (11.6-14.8)
[2017-06-07 05:09] LABS: WHITE BLOOD COUNT 26.6 K/UL (4.8-10.8)
[2017-06-07] MEDS: Vancomycin 1250mg/D5W 250ml IVPB SCH ×4 (05:51→22:20)
[2017-06-07] MEDS: Norco 5mg/325mg tab ORAL PRN ×4 (06:32→21:13)
[2017-06-07] MEDS ORDERED: KCl 10% 40mEq/30ml liquid NG ONE (08:45)
--- NOTE | 2017-06-07 08:48 | General Progress Note ---
Assessment/Plan Problem List: (1) Severe sepsis ICD Codes: A41.9 - Sepsis, unspecified organism; R65.20 - Severe sepsis without septic shock SNOMED: [id number] Status: stable Assessment/Plan iv abx follow up cultures surgery follow up anxiety rx pain rx Subjective ROS Limited/Unobtainable: No Constitutional: Reports: no symptoms HEENT: Reports: no symptoms Cardiovascular: Reports: no symptoms Respiratory: Reports: no symptoms Gastrointestinal/Abdominal: Reports: no symptoms Genitourinary: Reports: no symptoms Neurologic/Psychiatric: Reports: no symptoms Endocrine: Reports: no symptoms Hematologic/Lymphatic: Reports: no symptoms Allergies: Coded Allergies: No Known Allergies (Unverified , 11/09/13) All Systems: reviewed and negative except above Subjective ct noted. wbc and fever trending down. on iv abx. cultures negative so far Objective Last 24 Hour Vital Signs Date Time Temp Pulse Resp B/P (MAP) Pulse Ox O2 Delivery O2 Flow Rate FiO2 06/07/17 04:00 99 06/07/17 04:00 99.8 107 20 145/80 91 Room Air 06/07/17 00:00 107 06/07/17 00:00 97.1 99 21 133/76 93 Room Air 06/07/17 00:00 97.1 99 21 93 Room Air 06/07/17 00:00 98.1 20 138/80 94 Room Air 06/06/17 20:00 120 06/06/17 20:00 98.1 118 20 138/80 94 Room Air 06/06/17 16:00 101 06/06/17 12:00 109 06/06/17 09:33 98.2 95 16 131/87 99 Room Air Laboratory Tests 06/06/17 09:55: White Blood Count 29.7*H, Red Blood Count 3.33L, Hemoglobin 10.7L, Hematocrit 30.6L, Mean Corpuscular Volume 92, Mean Corpuscular Hemoglobin 32.3H, Mean Corpuscular Hemoglobin Concent 35.1, Red Cell Distribution Width 12.0, Platelet Count 240, Mean Platelet Volume 5.9L, Neutrophils (%) (Auto) , Lymphocytes (%) ( Auto) , Monocytes (%) (Auto) , Eosinophils (%) (Auto) , Basophils (%) (Auto) , Differential Total Cells Counted 100, Neutrophils % (Manual) 84H, Lymphocytes % (Manual) 5L, Monocytes % (Manual) 6, Eosinophils % (Manual) 0, Basophils % ( Manual) 0, Band Neutrophils 5, Platelet Estimate Adequate, Platelet Morphology Normal, Sodium Level 140, Potassium Level 3.3L, Chloride Level 102, Carbon Dioxide Level 31H, Anion Gap 7, Blood Urea Nitrogen 9, Creatinine 0.7, Estimat Glomerular Filtration Rate > 60, Glucose Level 115H, Calcium Level 8.0L, Total Bilirubin 0.4, Aspartate Amino Transf (AST/SGOT) 33, Alanine Aminotransferase ( ALT/SGPT) 39, Alkaline Phosphatase 147H, Total Protein 5.6L, Albumin 2.6L, Globulin 3.0, Albumin/Globulin Ratio 0.8L, Hepatitis A IgM Antibody [Pending], Hepatitis A Antibody Total [Pending], Hepatitis B Surface Antigen [Pending], Hepatitis B Surface Antibody [Pending], Hepatitis C Antibody [Pending], HIV (1&2 ) Antibody Rapid Negative 06/07/17 03:45: White Blood Count 26.6*H, Red Blood Count 3.55L, Hemoglobin 10.9L, Hematocrit 32.7L, Mean Corpuscular Volume 92, Mean Corpuscular Hemoglobin 30.8, Mean Corpuscular Hemoglobin Concent 33.4, Red Cell Distribution Width 11.8, Platelet Count 316, Mean Platelet Volume 5.4L, Neutrophils (%) (Auto) , Lymphocytes (%) ( Auto) , Monocytes (%) (Auto) , Eosinophils (%) (Auto) , Basophils (%) (Auto) , Neutrophils % (Manual) [Pending], Lymphocytes % (Manual) [Pending], Platelet Estimate [Pending], Platelet Morphology [Pending], Sodium Level 140, Potassium Level 3.2L, Chloride Level 99, Carbon Dioxide Level 33H, Anion Gap 8, Blood Urea Nitrogen 6L, Creatinine 0.7, Estimat Glomerular Filtration Rate > 60, Glucose Level 111H, Calcium Level 8.1L, Total Bilirubin 0.4, Aspartate Amino Transf (AST/SGOT) 37, Alanine Aminotransferase (ALT/SGPT) 41, Alkaline Phosphatase 195H, Total Protein 6.2L, Albumin 2.7L, Globulin 3.5, Albumin/ Globulin Ratio 0.7L, Vancomycin Level Trough 15.6H Height (Feet): 5 Height (Inches): 9.00 Weight (Pounds): 140 General Appearance: WD/WN Neck: supple Cardiovascular: normal rate Respiratory/Chest: lungs clear Abdomen: normal bowel sounds, non tender, soft Edema: no edema noted Arm (L), no edema noted Arm (R), no edema noted Leg (L), no edema noted Leg (R), no edema noted Pedal (L), no edema noted Pedal (R), no edema noted Generalized TERESA REEVES Jun 07, 2017 08:47
[2017-06-07] MEDS: Heparin 5000 units/ml inj SUBQ SCH ×2 (09:20→21:15)
[2017-06-07 09:40] LABS: BAND NEUTROPHILS % (MANUAL) 2 % (0-8); LYMPHOCYTES % (MANUAL) 8 % (20-45); NEUTROPHILS % (MANUAL) 85 % (45-75); TOTAL CELLS COUNTED 100
[2017-06-07 09:41] LABS: BASOPHILS % (MANUAL) 0 % (0-2); EOSINOPHILS % (MANUAL) 0 % (0-3); PLATELET ESTIMATE ADEQUATE; PLATELET MORPHOLOGY NORMAL; TEAR DROP CELLS 1+
--- NOTE | 2017-06-07 09:54 | General Progress Note ---
Progress Note Progress Note Surgery: patient seen and examined at bedside. no acute events. CT scan reviewed. Low grade fever, leukocytosis trending down, exam improved. edema around right hip and proximal thigh much improved. unfortunately I feel patient maybe malingering. when asked about ambulation patient states "i cannot walk" he expresses that he is now disabled because of this and he wants a wheelchair and to stay in the hospital as long as possible until he can walk again... yet staff have seen him ambulate to the bathroom on his own without any difficulties. -continue IV Abx -trend wbc -no acute surgical intervention necessary at this time. -given improvement with Abx unsure if necessary to aspirate small fluid collections seen on CT. -will follow Barry Lantigua Jun 07, 2017 09:54
[2017-06-07 12:15] VITALS: BP 129/75
--- NOTE | 2017-06-07 12:24 | Infectious Diseases Prog Note ---
"Assessment/Plan Assessment/Plan antibiotics : vancomycin iv, zosyn A 1. right leg | foot cellulitis | ulcers with staph aureus 2. history of IVDU 3. psoas abscess 4. leucocytosis improving P 1. continue vancomycin iv, zosyn 2. will follow up cultures Subjective ROS Limited/Unobtainable: Yes Allergies: Coded Allergies: No Known Allergies (Unverified , 11/09/13) Objective Vital Signs Last 24 Hour Vital Signs Date Time Temp Pulse Resp B/P (MAP) Pulse Ox O2 Delivery O2 Flow Rate FiO2 06/07/17 12:15 98.9 89 18 129/75 97 Room Air 06/07/17 08:00 83 06/07/17 04:00 99 06/07/17 04:00 99.8 107 20 145/80 91 Room Air 06/07/17 00:00 107 06/07/17 00:00 97.1 99 21 133/76 93 Room Air 06/07/17 00:00 97.1 99 21 93 Room Air 06/07/17 00:00 98.1 20 138/80 94 Room Air 06/06/17 20:00 120 06/06/17 20:00 98.1 118 20 138/80 94 Room Air 06/06/17 16:00 101 Height (Feet): 5 Height (Inches): 9.00 Weight (Pounds): 140 Respiratory/Chest: lungs clear Cardiovascular: normal rate, regular rhythm, no gallop/murmur Abdomen: soft, non tender Extremities: no edema Microbiology Date/Time Source Procedure Growth Status 06/04/17 12:30 Blood Blood Culture - Preliminary NO GROWTH AFTER 48 HOURS Resulted 06/06/17 06:50 Stool Clostridium difficile Toxin Assay - Final Complete 06/06/17 12:00 Urine,Clean Catch Urine Culture - Preliminary NO GROWTH Resulted 06/05/17 08:50 Toe Right Big Gram Stain - Final Resulted 06/05/17 08:50 Aerobic Culture - Preliminary Staphylococcus Aureus Resulted 06/05/17 08:50 Toe Right Big Anaerobic Culture Pending Resulted Laboratory Tests Test 06/07/17 03:45 White Blood Count 26.6 K/UL (4.8-10.8) *H Red Blood Count 3.55 M/UL (4.70-6.10) L Hemoglobin 10.9 G/DL (14.2-18.0) L Hematocrit 32.7 % (42.0-52.0) L Mean Corpuscular Volume 92 FL (80-99) Mean Corpuscular Hemoglobin 30.8 PG (27.0-31.0) Mean Corpuscular Hemoglobin Concent 33.4 G/DL (32.0-36.0) Red Cell Distribution Width 11.8 % (11.6-14.8) Platelet Count 316 K/UL (150-450) Mean Platelet Volume 5.4 FL (6.5-10.1) L Neutrophils (%) (Auto) % (45.0-75.0) Lymphocytes (%) (Auto) % (20.0-45.0) Monocytes (%) (Auto) % (1.0-10.0) Eosinophils (%) (Auto) % (0.0-3.0) Basophils (%) (Auto) % (0.0-2.0) Differential Total Cells Counted 100 Neutrophils % (Manual) 85 % (45-75) H Lymphocytes % (Manual) 8 % (20-45) L Monocytes % (Manual) 5 % (1-10) Eosinophils % (Manual) 0 % (0-3) Basophils % (Manual) 0 % (0-2) Band Neutrophils 2 % (0-8) Platelet Estimate Adequate Platelet Morphology Normal Tear Drop Cells 1+ Sodium Level 140 mEQ/L (135-145) Potassium Level 3.2 mEQ/L (3.4-4.9) L Chloride Level 99 mEQ/L (98-107) Carbon Dioxide Level 33 mEQ/L (20-30) H Anion Gap 8 (5-15) Blood Urea Nitrogen 6 mg/dL (7-23) L Creatinine 0.7 mg/dL (0.7-1.2) Estimat Glomerular Filtration Rate > 60 mL/min (>60) Glucose Level 111 mg/dL (74-106) H Calcium Level 8.1 mg/dL (8.6-10.2) L Total Bilirubin 0.4 mg/dL (0.0-1.2) Aspartate Amino Transf (AST/SGOT) 37 U/L (5-40) Alanine Aminotransferase (ALT/SGPT) 41 U/L (3-41) Alkaline Phosphatase 195 U/L (40-129) H Total Protein 6.2 g/dL (6.6-8.7) L Albumin 2.7 g/dL (3.5-5.2) L Globulin 3.5 g/dL Albumin/Globulin Ratio 0.7 (1.0-2.7) L Vancomycin Level Trough 15.6 ug/mL (5.0-12.0) H BRII HESTER Jun 07, 2017 12:24"
--- NOTE | 2017-06-07 12:40 | Consultation ---
DATE OF CONSULTATION: 06/06/2017 INFECTIOUS DISEASES CONSULTATION CONSULTING PHYSICIAN: Sarika Ferris M.D. REFERRING PHYSICIAN: Ulises Hunter M.D. REASON FOR CONSULTATION: Leukocytosis. History Of Presenting Illness: This is a 32-year-old gentleman with history of crystal meth IV drug use, who came in after a fall. He says he is having difficulty with urination and he was found to have fever and leukocytosis and an Infectious Diseases consultation has been obtained for antibiotics. PAST MEDICAL HISTORY: Noncontributory. Medications: As an inpatient, he is on Flomax, IV vancomycin, Zosyn, subcutaneous heparin, Tylenol, lorazepam, hydrocodone, acetaminophen, and Zofran. ALLERGIES: No known drug allergies. Social History: He uses crystal meth intravenously. He also smokes amphetamines. No history of alcohol use. FAMILY HISTORY: Noncontributory. Review Of Systems: Respiratory: He had fever and chills. No cough. No shortness of breath or chest pain. Cardiac: No chest pain. No palpitations. No dizziness. No syncope. Gastrointestinal: No nausea. No vomiting. No abdominal pain or diarrhea. PHYSICAL EXAMINATION: Vital Signs: Temperature of 98.2, T-max of 101.7, pulse of 95, respiratory rate 16, blood pressure 131/87, and O2 saturation of 99%. HEENT: Pupils equally reactive to light and accommodation. Mouth appears clean without thrush. NECK: Supple. No adenopathy. No JVD. CARDIOVASCULAR: Regular rate and rhythm. No murmurs. LUNGS: Clear to auscultation bilaterally. No crackles. No wheezes. ABDOMEN: Soft and nontender. No organomegaly. Extremities: No cyanosis, no clubbing, and no edema. Erythematous areas noted in the left foot as well as left leg as well as the right third toe ulcer noted. Right first toe erythema noted. Laboratory and diagnostic Data: Laboratory data, white count of , hemoglobin 10.6, hematocrit 30.6, MCV 91, platelet count of 231 with neutrophils of 83%. Sodium 133, potassium 3.7, chloride 92, bicarbonate 17, BUN 23, creatinine 0.8, and glucose 155. Calcium 8.8. UA showing 2 to 4 white cells. Urine toxicology was positive for amphetamines and marijuana. Blood cultures are negative so far. Rectal swab was negative for VRE. Nasal swab was negative for MRSA. MRI of the lumbar spine showing inflammation of the right iliopsoas, particularly the iliacus component with marked edema and subtle contrast enhancement, small abscesses are seen within the iliacus muscle belly; it is contiguous with the right lateral aspect of the lumbar vertebral body as well as transverse processes. No evidence of epidural abscess or significant neural impingement. 2D echocardiogram showing no evidence of vegetations, trace mitral regurgitation noted, and trace tricuspid regurgitation noted. Ankle x-ray showing no acute bony trauma. ASSESSMENT: 1. This is a 32-year-old gentleman with history of intravenous drug use who comes in with possible cellulitis of his legs with injection marie. 2. We would like to rule out sepsis as a possibility. 3. Leukocytosis is improving. 4. Psoas abscesses. PLAN: 1. Continue IV vancomycin and Zosyn. 2. We will order urine cultures. 3. We will order HIV test as well as hepatitis A, B, and C serology, the patient is agreeable to that. 4. We will follow up cultures. 5. We will suggest a surgical evaluation. I would like to thank Dr. Hunter for this consultation. Sarika Ferris M.D. DR: ABHAY JOB#: [id number] CC: Ulises Hunter M.D.
[2017-06-07 14:30] LABS: HEPATITIS A ANTIBODY TOTAL Positive (Negative)
[2017-06-07] MEDS: LORazepam Inj 2mg/ml 1ml IV PRN (14:47)
[2017-06-07 16:19] VITALS: BP 129/77
[2017-06-07 20:00] VITALS: BP 145/76
--- NOTE | 2017-06-07 20:47 | Podiatric Progress Note ---
Assessment/Plan Patient Carlos Conroy is a 32 year old male who was admitted on Jun 04, 2017 at 15:44 for a fall Problems: (1) Ingrown nail of great toe of right foot (2) Toe pain, right (3) Skin pustule Assessment/Plan - Continue daily dressing changes of right hallux wound for one week. It is 2 days status post slant back procedure and surrounding cellulitis is improving. Nursing staff to notify podiatry team if symptoms or cellulitis worsens Subjective Reason for consult Right foot pain Allergies: Coded Allergies: No Known Allergies (Unverified , 11/09/13) Subjective Patient states that the pain has improved at the right hallux. Patient continues to have difficulty moving right lower extremity. No nausea, vomiting, fevers, or chills Objective Exam Last 24 Hour Vital Signs Date Time Temp Pulse Resp B/P (MAP) Pulse Ox O2 Delivery O2 Flow Rate FiO2 06/07/17 16:19 97.3 84 18 129/77 96 Room Air 06/07/17 16:00 91 06/07/17 12:15 98.9 89 18 129/75 97 Room Air 06/07/17 12:00 84 06/07/17 08:00 83 06/07/17 04:00 99 06/07/17 04:00 99.8 107 20 145/80 91 Room Air 06/07/17 00:00 107 06/07/17 00:00 97.1 99 21 133/76 93 Room Air 06/07/17 00:00 97.1 99 21 93 Room Air 06/07/17 00:00 98.1 20 138/80 94 Room Air Laboratory Tests Test 06/07/17 03:45 White Blood Count 26.6 K/UL (4.8-10.8) *H Red Blood Count 3.55 M/UL (4.70-6.10) L Hemoglobin 10.9 G/DL (14.2-18.0) L Hematocrit 32.7 % (42.0-52.0) L Mean Corpuscular Volume 92 FL (80-99) Mean Corpuscular Hemoglobin 30.8 PG (27.0-31.0) Mean Corpuscular Hemoglobin Concent 33.4 G/DL (32.0-36.0) Red Cell Distribution Width 11.8 % (11.6-14.8) Platelet Count 316 K/UL (150-450) Mean Platelet Volume 5.4 FL (6.5-10.1) L Neutrophils (%) (Auto) % (45.0-75.0) Lymphocytes (%) (Auto) % (20.0-45.0) Monocytes (%) (Auto) % (1.0-10.0) Eosinophils (%) (Auto) % (0.0-3.0) Basophils (%) (Auto) % (0.0-2.0) Differential Total Cells Counted 100 Neutrophils % (Manual) 85 % (45-75) H Lymphocytes % (Manual) 8 % (20-45) L Monocytes % (Manual) 5 % (1-10) Eosinophils % (Manual) 0 % (0-3) Basophils % (Manual) 0 % (0-2) Band Neutrophils 2 % (0-8) Platelet Estimate Adequate Platelet Morphology Normal Tear Drop Cells 1+ Sodium Level 140 mEQ/L (135-145) Potassium Level 3.2 mEQ/L (3.4-4.9) L Chloride Level 99 mEQ/L (98-107) Carbon Dioxide Level 33 mEQ/L (20-30) H Anion Gap 8 (5-15) Blood Urea Nitrogen 6 mg/dL (7-23) L Creatinine 0.7 mg/dL (0.7-1.2) Estimat Glomerular Filtration Rate > 60 mL/min (>60) Glucose Level 111 mg/dL (74-106) H Calcium Level 8.1 mg/dL (8.6-10.2) L Total Bilirubin 0.4 mg/dL (0.0-1.2) Aspartate Amino Transf (AST/SGOT) 37 U/L (5-40) Alanine Aminotransferase (ALT/SGPT) 41 U/L (3-41) Alkaline Phosphatase 195 U/L (40-129) H Total Protein 6.2 g/dL (6.6-8.7) L Albumin 2.7 g/dL (3.5-5.2) L Globulin 3.5 g/dL Albumin/Globulin Ratio 0.7 (1.0-2.7) L Vancomycin Level Trough 15.6 ug/mL (5.0-12.0) H Microbiology Date/Time Source Procedure Growth Status 06/04/17 12:30 Blood Blood Culture - Preliminary NO GROWTH AFTER 48 HOURS Resulted 06/04/17 12:15 Nasal Nares MRSA Culture - Final NO METHICILLIN RESISTANT STAPH AUREUS... Complete 06/06/17 06:50 Stool Clostridium difficile Toxin Assay - Final Complete 06/06/17 12:00 Urine,Clean Catch Urine Culture - Preliminary NO GROWTH Resulted 06/05/17 08:50 Toe Right Big Gram Stain - Final Resulted 06/05/17 08:50 Aerobic Culture - Preliminary Staphylococcus Aureus Resulted 06/05/17 08:50 Toe Right Big Anaerobic Culture Pending Resulted Exam Narrative Right hallux with improving cellulitis. Mild pain with palpation at the right hallux proximal medial aspect of the nail border. No purulence or malodor noted. Right foot 3rd toe area of lanced pustule is improving. Patient's sensation is within normal limits at the right lower extremity. However, motor function is diminished. He is able to plantarflex and dorsiflex his toes Donald Pink DPM Jun 07, 2017 20:47
[2017-06-07] MEDS: Tamsulosin 0.4mg cap ORAL SCH (21:12)
[2017-06-08] VITALS: BP 132/85
[2017-06-08] MEDS: LORazepam Inj 2mg/ml 1ml IV PRN ×2 (00:02→09:02)
[2017-06-08] MEDS: Piperacillin/Tazobactam 3.375 GM in D5W 110 ML IVPB SCH ×3 (01:48→19:04)
[2017-06-08 04:00] VITALS: BP 141/80
[2017-06-08] MEDS: Vancomycin 1250mg/D5W 250ml IVPB SCH ×2 (04:39→09:04)
[2017-06-08] MEDS: Norco 5mg/325mg tab ORAL PRN ×2 (05:52→16:22)
--- NOTE | 2017-06-08 08:34 | General Progress Note ---
Assessment/Plan Problem List: (1) Severe sepsis ICD Codes: A41.9 - Sepsis, unspecified organism; R65.20 - Severe sepsis without septic shock SNOMED: 17306413 Status: stable, progressing Assessment/Plan iv abx follow up cultures anxiety rx pain rx Subjective ROS Limited/Unobtainable: No Constitutional: Reports: malaise, weakness HEENT: Reports: no symptoms Cardiovascular: Reports: no symptoms Respiratory: Reports: no symptoms Gastrointestinal/Abdominal: Reports: no symptoms Genitourinary: Reports: no symptoms Neurologic/Psychiatric: Reports: no symptoms Endocrine: Reports: no symptoms Hematologic/Lymphatic: Reports: no symptoms Allergies: Coded Allergies: No Known Allergies (Unverified , 11/09/13) All Systems: reviewed and negative except above Subjective ct noted. wbc and fever trending down. on iv abx. cultures negative so far. id, pod, surgery appreciated Objective Last 24 Hour Vital Signs Date Time Temp Pulse Resp B/P (MAP) Pulse Ox O2 Delivery O2 Flow Rate FiO2 06/08/17 04:00 97.0 92 23 141/80 96 Room Air 06/08/17 04:00 90 06/08/17 00:00 97.9 96 20 132/85 94 Room Air 06/08/17 00:00 83 06/07/17 22:12 98.5 06/07/17 20:00 97.9 85 20 145/76 96 Nasal Cannula 06/07/17 20:00 83 06/07/17 16:19 97.3 84 18 129/77 96 Room Air 06/07/17 16:00 91 06/07/17 12:15 98.9 89 18 129/75 97 Room Air 06/07/17 12:00 84 Height (Feet): 5 Height (Inches): 9.00 Weight (Pounds): 140 Objective General Appearance: WD/WN Neck: supple Cardiovascular: normal rate Respiratory/Chest: lungs clear Abdomen: normal bowel sounds, non tender, soft Edema: no edema noted Arm (L), no edema noted Arm (R), no edema noted Leg (L), no edema noted Leg (R), no edema noted Pedal (L), no edema noted Pedal (R), no edema noted Generalized TERESA REEVES Jun 08, 2017 08:34
[2017-06-08] MEDS ORDERED: LORazepam 1mg tab ORAL PRN (09:30)
--- NOTE | 2017-06-08 09:58 | Infectious Diseases Prog Note ---
Assessment/Plan Assessment/Plan A; Sepsis Psoas, sacroiliac Abscess Left foot cellulitis Hepatitis C IV drug abuse P; Continue Vancomycin & Zosyn Consider radiologic drainage of abscess Subjective ROS Limited/Unobtainable: No Constitutional: Reports: no symptoms Musculoskeletal: Reports: pain, other - in legs Allergies: Coded Allergies: No Known Allergies (Unverified , 11/09/13) Objective Vital Signs Last 24 Hour Vital Signs Date Time Temp Pulse Resp B/P (MAP) Pulse Ox O2 Delivery O2 Flow Rate FiO2 06/08/17 08:00 95 06/08/17 04:00 97.0 92 23 141/80 96 Room Air 06/08/17 04:00 90 06/08/17 00:00 97.9 96 20 132/85 94 Room Air 06/08/17 00:00 83 06/07/17 22:12 98.5 06/07/17 20:00 97.9 85 20 145/76 96 Nasal Cannula 06/07/17 20:00 83 06/07/17 16:19 97.3 84 18 129/77 96 Room Air 06/07/17 16:00 91 06/07/17 12:15 98.9 89 18 129/75 97 Room Air 06/07/17 12:00 84 Height (Feet): 5 Height (Inches): 9.00 Weight (Pounds): 140 General Appearance: no acute distress HEENT: mucous membranes moist Respiratory/Chest: lungs clear Cardiovascular: normal rate Abdomen: soft, non tender Extremities: no edema Skin: other - left big toe paonychia, Neurologic/Psychiatric: alert, oriented x 3, responsive Microbiology Date/Time Source Procedure Growth Status 06/06/17 06:50 Stool Clostridium difficile Toxin Assay - Final Complete 06/06/17 12:00 Urine,Clean Catch Urine Culture - Preliminary NO GROWTH Resulted Current Medications Medications (Trade) Dose Ordered Sig/Raymon Route PRN Reason Start Time Stop Time Status Last Admin Dose Admin Acetaminophen (Tylenol) 500 mg Q4H PRN ORAL Mild Pain/Temp > 100.5 06/04/17 16:00 07/04/17 15:59 06/04/17 23:07 Acetaminophen/ Hydrocodone Bitart ([place]ibel 5/325) 2 tab Q4H PRN ORAL pain 4-10 06/06/17 11:15 06/13/17 11:14 06/08/17 05:52 Heparin Sodium (Porcine) (Heparin 5000 units/ml) 5,000 units EVERY 12 HOURS SUBQ 06/04/17 21:00 07/04/17 20:59 06/07/17 21:15 Lorazepam (Ativan) 1 mg EVERY 4 HOURS PRN ORAL For Anxiety 06/08/17 09:30 06/15/17 09:29 Ondansetron HCl (Zofran) 4 mg Q6H PRN IVP Nausea & Vomiting 06/04/17 15:00 07/04/17 14:59 Piperacillin Sod/ Tazobactam Sod 3.375 gm/Dextrose 110 ml @ 27.5 mls/hr Q8HR@0200,1000,1800 IVPB 06/04/17 18:00 06/11/17 17:59 06/08/17 09:03 Tamsulosin HCl (Flomax) 0.4 mg BEDTIME ORAL 06/06/17 21:00 07/06/17 20:59 06/07/17 21:12 Vancomycin HCl (Vanco rx to dose) 1 ea DAILY PRN MISC Per rx protocol 06/04/17 16:00 07/04/17 15:59 Vancomycin HCl/ Dextrose 250 ml @ 166.667 mls/hr Q6H IVPB 06/06/17 04:00 06/11/17 03:59 06/08/17 09:04 POOL HORTON Jun 08, 2017 09:58
[2017-06-08] MEDS: Heparin 5000 units/ml inj SUBQ SCH ×2 (10:12→21:20)
--- NOTE | 2017-06-08 10:30 | Consultation ---
Consultation Allergies: Coded Allergies: No Known Allergies (Unverified , 11/09/13) Past Medical History 2-year-old male with unknown psych hx pw s/p fall. the pt has a history of substance abuse, mainly meth. 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 the pt denied any psych sxs. During the eval he appeared anxious however did not endorse any psychotic sxs nor si. the pt has been agitated and abusive toward the staff. Social History: Drug abuse Intoxication meth Medications none prior to hospt General Appearance: Disheveled, Stated Age, Alert Orientation: Time, Place, Person, Situation Attention Span Description: Poor Mood/Memory: Depressed Affect: Constricted Thought Process: Linear Speech: Normal in Volume & Rate Intelligence: Average Insight/ Judgement: Poor Impulse Control: Poor - pt denied si/hi/avh, Fair Assessment/Plan Status: stable Assessment/Plan substance use d/o, meth -seroquel 50 mg qhs -seroquel 50mg q 6hr prn anxiety -not holdable -pt asked for placement Saeed Lee M.D. Jun 08, 2017 10:30
--- NOTE | 2017-06-08 10:48 | General Progress Note ---
Progress Note Progress Note Right groin slight edema, subsiding. WBC decreasing slowly. Continue antibiotics, etc. No surgery at this time. YODIT HATCH Jun 08, 2017 10:48
[2017-06-08] MEDS ORDERED: Acetaminophen 500mg (ES) tab ORAL PRN (12:00)
[2017-06-08 12:31] VITALS: BP 141/87
[2017-06-08] MEDS: LORazepam 1mg tab ORAL PRN (13:53)
[2017-06-08 16:00] VITALS: BP 144/87
[2017-06-08] MEDS: Vancomycin 1250mg/D5W 250ml 250 ML IVPB SCH ×2 (16:10→21:18)
[2017-06-08] MEDS: Tamsulosin 0.4mg cap ORAL SCH (21:17)
[2017-06-09] MEDS ORDERED: Cephalexin 500mg cap ORAL SCH
[2017-06-09] MEDS: Piperacillin/Tazobactam 3.375 GM in D5W 110 ML IVPB SCH ×3 (01:33→19:06)
[2017-06-09] MEDS: Vancomycin 1250mg/D5W 250ml 250 ML IVPB SCH ×4 (04:02→21:12)
[2017-06-09] MEDS: LORazepam 1mg tab ORAL PRN (04:08)
[2017-06-09] MEDS: Norco 5mg/325mg tab ORAL PRN ×4 (04:10→22:32)
--- NOTE | 2017-06-09 07:49 | General Progress Note ---
Progress Note Progress Note Surgery: no acute events. doing well. will awake for exam today but does not participate during interview. just states he has pain. afebrile, HD stable, VSS. Pending AM labs. Exam with improving right groin/hip edema. no surgical intervention necessary at this time. improving on Abx pending AM labs. once leukocytosis resolves can start d/c planning on oral abx from surgical standpoint Barry Lantigua Jun 09, 2017 07:49
[2017-06-09 08:00] VITALS: BP 125/75
--- NOTE | 2017-06-09 08:30 | General Progress Note ---
Assessment/Plan Problem List: (1) Severe sepsis ICD Codes: A41.9 - Sepsis, unspecified organism; R65.20 - Severe sepsis without septic shock SNOMED: [id number] Status: stable, progressing Assessment/Plan iv abx follow up cultures anxiety rx pain rx can go to [facility] on iv abx Subjective ROS Limited/Unobtainable: No Constitutional: Reports: no symptoms HEENT: Reports: no symptoms Cardiovascular: Reports: no symptoms Respiratory: Reports: no symptoms Gastrointestinal/Abdominal: Reports: no symptoms Genitourinary: Reports: no symptoms Neurologic/Psychiatric: Reports: no symptoms Endocrine: Reports: no symptoms Hematologic/Lymphatic: Reports: no symptoms Allergies: Coded Allergies: No Known Allergies (Unverified , 11/09/13) All Systems: reviewed and negative except above Subjective no change. wants higher dose of ativan. looks comfortable Objective Last 24 Hour Vital Signs Date Time Temp Pulse Resp B/P (MAP) Pulse Ox O2 Delivery O2 Flow Rate FiO2 06/08/17 16:00 98.4 90 18 144/87 Room Air 06/08/17 12:31 97.5 89 18 141/87 95 Room Air Height (Feet): 5 Height (Inches): 9.00 Weight (Pounds): 140 Objective General Appearance: WD/WN Neck: supple Cardiovascular: normal rate Respiratory/Chest: lungs clear Abdomen: normal bowel sounds, non tender, soft Edema: no edema noted Arm (L), no edema noted Arm (R), no edema noted Leg (L), no edema noted Leg (R), no edema noted Pedal (L), no edema noted Pedal (R), no edema noted Generalized TERESA REEVES Jun 09, 2017 08:30
[2017-06-09] MEDS ORDERED: NS 550ML IV ONE (08:57)
[2017-06-09] MEDS ORDERED: Tubing IV Secondary IV ONE (08:57)
[2017-06-09] MEDS: Heparin 5000 units/ml inj SUBQ SCH ×2 (10:23→21:18)
--- NOTE | 2017-06-09 10:29 | General Progress Note ---
Assessment/Plan Status: stable, progressing Subjective Neurologic/Psychiatric: Reports: depressed, emotional problems Allergies: Coded Allergies: No Known Allergies (Unverified , 11/09/13) Subjective the pt sleepy however not confused. decrease agitation Objective Last 24 Hour Vital Signs Date Time Temp Pulse Resp B/P (MAP) Pulse Ox O2 Delivery O2 Flow Rate FiO2 06/09/17 08:00 97.3 89 20 125/75 96 Room Air 06/08/17 16:00 98.4 90 18 144/87 Room Air 06/08/17 12:31 97.5 89 18 141/87 95 Room Air Height (Feet): 5 Height (Inches): 9.00 Weight (Pounds): 140 General Appearance: no apparent distress, alert, thin Neurologic: alert, oriented x 3, responsive, depressed affect Saeed Lee M.D. Jun 09, 2017 10:29
[2017-06-09] MEDS ORDERED: LORazepam 1mg tab ORAL PRN (10:30)
[2017-06-09 10:51] LABS: ANION GAP 9 (5-15); CALCIUM 8.4 mg/dL (8.6-10.2); CARBON DIOXIDE 29 mEQ/L (20-30); CHLORIDE 102 mEQ/L (98-107); CREATININE 0.7 mg/dL (0.7-1.2); GLOMERULAR FILTRATION RATE > 60 mL/min (>60); HEMOLYSIS 14; POTASSIUM 3.9 mEQ/L (3.4-4.9); SODIUM 140 mEQ/L (135-145)
[2017-06-09 10:54] LABS: BASOPHILS % (AUTO) 2.3 % (0.0-2.0); EOSINOPHILS % (AUTO) 2.1 % (0.0-3.0); MEAN CORPUSCULAR HEMOGLOBIN 30.9 PG (27.0-31.0); MEAN CORPUSCULAR VOLUME 91 FL (80-99); MEAN PLATELET VOLUME 5.1 FL (6.5-10.1); MONOCYTES % (AUTO) 11.5 % (1.0-10.0); NEUTROPHILS % (AUTO) 66.1 % (45.0-75.0); PLATELET COUNT 464 K/UL (150-450); RED BLOOD COUNT 3.73 M/UL (4.70-6.10); RED CELL DISTRIBUTION WIDTH 12.3 % (11.6-14.8); WHITE BLOOD COUNT 16.4 K/UL (4.8-10.8)
[2017-06-09] MEDS ORDERED: CEPHALEXIN500 MG ORAL ×2 (11:59→12:00)
[2017-06-09 12:00] VITALS: BP 118/79
--- NOTE | 2017-06-09 12:10 | Infectious Diseases Prog Note ---
"Assessment/Plan Assessment/Plan antibiotics : vancomycin iv, zosyn A 1. right leg | foot cellulitis | ulcers with staph aureus | streptococcus 2. history of IVDU 3. psoas abscess 4. leucocytosis improving P 1. d/c vancomycin iv, zosyn 2. start and continue po keflex 8 more days 3. will follow up cultures Subjective Constitutional: Denies: fever, chills Respiratory: Denies: shortness of breath, dry cough Gastrointestinal/Abdominal: Denies: nausea, vomiting, diarrhea Musculoskeletal: Reports: pain Allergies: Coded Allergies: No Known Allergies (Unverified , 11/09/13) Objective Vital Signs Last 24 Hour Vital Signs Date Time Temp Pulse Resp B/P (MAP) Pulse Ox O2 Delivery O2 Flow Rate FiO2 06/09/17 08:00 97.3 89 20 125/75 96 Room Air 06/08/17 16:00 98.4 90 18 144/87 Room Air 06/08/17 12:31 97.5 89 18 141/87 95 Room Air Height (Feet): 5 Height (Inches): 9.00 Weight (Pounds): 140 Respiratory/Chest: lungs clear Cardiovascular: normal rate, regular rhythm, no gallop/murmur Abdomen: soft, non tender Extremities: no edema, other - right big toe in dressings Laboratory Tests Test 06/09/17 10:20 White Blood Count 16.4 K/UL (4.8-10.8) H Red Blood Count 3.73 M/UL (4.70-6.10) L Hemoglobin 11.5 G/DL (14.2-18.0) L Hematocrit 33.9 % (42.0-52.0) L Mean Corpuscular Volume 91 FL (80-99) Mean Corpuscular Hemoglobin 30.9 PG (27.0-31.0) Mean Corpuscular Hemoglobin Concent 34.0 G/DL (32.0-36.0) Red Cell Distribution Width 12.3 % (11.6-14.8) Platelet Count 464 K/UL (150-450) H Mean Platelet Volume 5.1 FL (6.5-10.1) L Neutrophils (%) (Auto) 66.1 % (45.0-75.0) Lymphocytes (%) (Auto) 18.0 % (20.0-45.0) L Monocytes (%) (Auto) 11.5 % (1.0-10.0) H Eosinophils (%) (Auto) 2.1 % (0.0-3.0) Basophils (%) (Auto) 2.3 % (0.0-2.0) H Sodium Level 140 mEQ/L (135-145) Potassium Level 3.9 mEQ/L (3.4-4.9) Chloride Level 102 mEQ/L (98-107) Carbon Dioxide Level 29 mEQ/L (20-30) Anion Gap 9 (5-15) Blood Urea Nitrogen 14 mg/dL (7-23) Creatinine 0.7 mg/dL (0.7-1.2) Estimat Glomerular Filtration Rate > 60 mL/min (>60) Glucose Level 95 mg/dL (74-106) Calcium Level 8.4 mg/dL (8.6-10.2) BRII MARC Jun 09, 2017 12:10"
[2017-06-09] MEDS: LORazepam 0.5mg tab ORAL PRN ×3 (13:09→22:32)
[2017-06-09 16:00] VITALS: BP 133/75
[2017-06-09 20:15] VITALS: BP 134/85
[2017-06-09] MEDS: Tamsulosin 0.4mg cap ORAL SCH (21:12)
[2017-06-09 23:56] VITALS: BP 110/70
[2017-06-10] MEDS: Piperacillin/Tazobactam 3.375 GM in D5W 110 ML IVPB SCH ×2 (02:12→10:00)
[2017-06-10 04:00] VITALS: BP 127/82
[2017-06-10] MEDS: Vancomycin 1250mg/D5W 250ml 250 ML IVPB SCH ×2 (04:30→09:54)
[2017-06-10] MEDS: LORazepam 0.5mg tab ORAL PRN (08:36)
[2017-06-10] MEDS: Heparin 5000 units/ml inj SUBQ SCH (08:40)
[2017-06-10] MEDS: Norco 5mg/325mg tab ORAL PRN (09:54)
[2017-06-10 12:00] VITALS: BP 127/78
--- NOTE | 2017-06-11 20:13 | General Progress Note ---
Assessment/Plan Status: doing well, stable Subjective Date patient seen: Jun 10, 2017 Allergies: Coded Allergies: No Known Allergies (Unverified , 11/09/13) Subjective the pt refused pt/ot, threw himself on the floor and stated he could not walk. refused to leave the hospital. I manage to convince the pt with staff assistance to agree to lower level of care. the pt not si/hi not a dts, dto/gd Objective Height (Feet): 5 Height (Inches): 9.00 Weight (Pounds): 140 General Appearance: no apparent distress, lethargic, thin Neurologic: oriented x 3, responsive, normal mood/affect Saeed Lee M.D. Jun 11, 2017 20:12
--- NOTE | 2017-06-13 08:51 | Discharge Summary ---
Discharge Summary Hospital Course Date of Admission Jun 04, 2017 at 15:44 Date of Discharge Jun 10, 2017 at 14:13 Admitting Diagnosis sepsis VEENA Conroy is a 32 year old male who was admitted on Jun 04, 2017 at 15:44 for Sepsis Hospital Course dc summary #[id number] Discharge Medications Continued Medications: Cephalexin* (Keflex*) 500 Mg Capsule 500 MG ORAL EVERY 6 HOURS for 8 Days, CAP Discharge Condition Upon Discharge: stable Discharge Disposition Patient was discharged to Home (01) Discharge Diagnoses: Discharge Instructions Discharge Instructions Special Instructions I have been assigned to complete a D/C Summary on this account. I was not involved in the patient management Larry Campbell),Corrie HERRERA Jun 13, 2017 08:51
--- NOTE | 2017-06-14 04:30 | Discharge Summary 2 SIG ---
DATE OF ADMISSION: 06/04/2017 DATE OF DISCHARGE: 06/10/2017 Reason For Admission: 32-year-old male with history of intravenous drug abuse, was found outside of the convenience store on the street. He sustained a fall, felt weak, and was brought in for evaluation by veterinary medicine teacher. On evaluation in the emergency room, noted fever -101.5 and tachycardia -130. WBC -35.6. Lactic acid -3.4 and repeated -4.4. Urinalysis revealed no evidence of UTI. Patient denied fever and chills. Denied cough. He had erythema on the right foot with multiple foot wounds. Sepsis protocol was initiated. EKG showed sinus tachycardia LFTs were within normal limits. Urine toxicology screen was positive for amphetamine and marijuana. The patient was admitted for further management. ADMITTING DIAGNOSES: 1. Severe sepsis. 2. Substance abuse. Hospital Course: Infectious Disease , Podiatry and psychiatric consults were requested along with General Surgery consult. The patient was started on empiric antibiotics. Blood culture were negative. Urine culture was negative. Stool for C. diff was negative. Wound culture of the right big toe grew Staph aureus and strep group A. MRI of the lumbar spine was done in concern to rule out epidural abscess. MRI of the lumbar spine revealed marked abnormality of the right iliopsoas muscle, however, no evidence of direct lumbar spinal involvement seen. No evidence of epidural abscess or significant neural impingement. CT of the abdomen and pelvis was done to evaluate involvement of iliopsoas muscle. It revealed myositis and phlegmon involving the right iliopsoas/ iliacus muscles. Adjacent retroperitoneal inflammation and 1 to 2 cm discrete fluid collection, likely small abscesses at the level of the right iliac fossa. Infection and cellulitis involving the right hip/gluteal musculature extending into the right thigh inferior to and beyond the field of the view. The patient was on the IV antibiotic as recommended by ID specialist and prior to discharge,antibiotics changed to oral Keflex to be continued for additional eight days as per Infectious Disease recommendation. Fever resolved. Leukocytosis from initial 35.6 down to 16.4. Surgeon seen and evaluated the patient in regards to the psoas abscess. According to the surgeon, the patient was improving on antibiotics. No surgical intervention was necessary at this time. Surgery cleared the patient for discharge home on oral antibiotics.The patient was stable for discharge home on oral antibiotics. Echocardiogram revealed preserved ejection fraction of 60% to 65% and no evidence of vegetation. Venous duplex of bilateral lower extremities was negative. Hepatitis panel was positive for hepatitis A antibody, indicating prior hepatitis A infection as well as the chronic hepatitis C infection. Criminal Justice Lawyer seen and evaluated the patient. Initially, bleacher pulp performed slant back procedure on the right hallux medial border. Daily dressing changes were continued per Podiatry recommendation with application of topical antibiotic ointment, covered with nonadherent dry dressing. Right foot third toe pustule was lanced. Criminal Justice Lawyer followed the patient and recommended continued daily dressing changes for one week. Surrounding cellulitis was improving. Psychiatrist seen and evaluated the patient, and started the patient on Seroquel. Per initial evaluation by psychiatrist, the patient was not holdable. Psychiatrist closely followed the patient. The patient displayed neither suicidal nor homicidal ideation. No danger to self or to others. The psychiatrist cleared the patient for discharge. The patient was counseled on abstinence from illicit street drugs. The patient was stable fro discharge on oral antibiotics. FINAL DIAGNOSES: 1. Severe sepsis. 2. Right leg/foot cellulitis with Staphylococcus aureus, Streptococcus group A. 3. Psoas abscess. 4. Polysubstance abuse. 5. History of intravenous drug abuse. 6. Right great toe ingrown nail with surrounding cellulitis. 7. Skin pustules DISCHARGE MEDICATIONS: See medication reconciliation list. Discharge Instructions: The patient was discharged home on oral antibiotics. The patient was counseled on abstinence from street drugs. Ulises Hunter M.D. I have been assigned to dictate discharge summary on this account and I was not involved in the patient's management. Corrie Juarez (Vanchtein) NCristhianPCristhian DR: Yamini JOB#: [id number] CC: JOSHUA
== END 2017-06-10 14:13 | disposition home or self-care (01) | DRG 871 ==
LOC: EDBD 11:19 → EMR 12:03 → EDBEDREQ 15:23 → 2E 15:44 → 4E 06-08 11:11
DX: A41.9 Sepsis, unspecified organism (principal); K68.12 Psoas muscle abscess; L03.115 Cellulitis of right lower limb; L97.919 Non-pressure chronic ulcer of unspecified part of right lower leg with unspecified severity; F15.10 Other stimulant abuse, uncomplicated; L60.0 Ingrowing nail; R65.20 Severe sepsis without septic shock; B95.61 Methicillin susceptible Staphylococcus aureus infection as the cause of diseases classified elsewhere; F12.90 Cannabis use, unspecified, uncomplicated; Z59.0 Homelessness; Z91.81 History of falling
CPT/HCPCS: 36415; 72158; 74177; 80048; 80053; 80202; 80300; 81003; 82550; 82553; 83036; 83605; 85007; 85025; 86703; 86708; 86709; 86803; 87040; 87070; 87075; 87081; 87086; 87181; 87205; 87324; 87340; 87517; 93005; 93306; 93925; 99285; A9585; J8499

== ENCOUNTER 2018-02-07 22:53 | Emergency (ER) | payer MEDICAID ==
[~2018-02-07] VITALS: Ht 167.6 cm; Wt 59.4 kg
[~2018-02-07 22:53] MED LIST changes: +CEPHALEXIN500 MG ORAL
[2018-02-07 23:15] VITALS: BP 118/78
--- NOTE | 2018-02-07 23:47 | Emergency Room Report ---
History of Present Illness General Chief Complaint: General Complaint Source: Patient Present Illness HPI 33yo M with no PMH reports dry skin and feeling withdrawal from methamphetamines which he used today He denies vomiting, diarrhea, f/c, sob, trauma, SI/HI Allergies: Coded Allergies: No Known Allergies (Unverified , 11/09/13) Patient History Past Medical History: see triage record Reviewed Nursing Documentation: PMH: Agreed; PSxH: Agreed Nursing Documentation-PMH Hx Cardiac Problems: No - MULTIPLE DRUG USE Review of Systems All Other Systems: negative except mentioned in HPI Physical Exam Vital Signs Date Time Temp Pulse Resp B/P (MAP) Pulse Ox O2 Delivery O2 Flow Rate FiO2 02/07/18 23:01 98.1 75 18 118/78 99 Room Air 98.1 Sp02 EP Interpretation: reviewed, normal General Appearance: no apparent distress, alert, non-toxic Head: normocephalic Eyes: bilateral eye normal inspection, bilateral eye PERRL, bilateral eye EOMI ENT: normal ENT inspection, hearing grossly normal, normal pharynx, no angioedema, normal voice, moist mucus membranes Neck: normal inspection, full range of motion, supple, supple/symm/no masses Respiratory: chest non-tender, lungs clear, normal breath sounds, chest symmetrical, palpation of chest normal Cardiovascular #1: normal peripheral pulses, regular rate, rhythm Cardiovascular #2: 2+ radial (R), 2+ radial (L) Gastrointestinal: normal inspection, non tender, soft, no mass, no guarding, no rebound Rectal: deferred Genitourinary: normal inspection, no CVA tenderness Musculoskeletal: back normal, gait/station normal, normal range of motion, non- tender, no calf tenderness Neurologic: alert, responsive, zoogler III-XII nml as tested, motor strength/tone normal, sensory intact, speech normal Psychiatric: judgement/insight normal, memory normal, mood/affect normal, no suicidal/homicidal ideation Skin: normal color, no rash, warm/dry, normal turgor Lymphatic: no adenopathy Medical Decision Making Diagnostic Impression: Primary Impression: Dehydration, mild ER Course 33-year-old male, likely coming down from a high after using amphetamines His skin is dry but there is no rash or anything requiring medical intervention He has not had any GI losses, and his moist mucous membranes indicate he does not need any aggressive therapy Is given Benadryl and Zofran and discharged He is not exhibiting any psychiatric disturbance or suicidality He is calm and cooperative He'll be discharged Last Vital Signs Date Time Temp Pulse Resp B/P (MAP) Pulse Ox O2 Delivery O2 Flow Rate FiO2 02/07/18 23:01 98.1 75 18 118/78 99 Room Air 98.1 Disposition: HOME, SELF-CARE Condition: Stable WENDY MATSON M.D February 07, 2018 23:47
[2018-02-08] VITALS: BP 118/78
== END 2018-02-08 | disposition home or self-care (01) ==
LOC: EMR 23:17
DX: E86.0 Dehydration (principal); R23.8 Other skin changes; F15.90 Other stimulant use, unspecified, uncomplicated
CPT/HCPCS: 99282